=== PATIENT | female | born 1945 | race Caucasian/White ===

== ENCOUNTER → 2021-10-04 | Outpatient (CLI) | payer MEDICARE ==
[2021-10-04 18:34] LABS: HCT 39.7 % (37.2-46.3); HGB 12.9 g/dL (12.0-15.0); MCH 33.6 pg (27.0-32.0); MCHC 32.5 g/dL (32.0-37.0); MCV 103.4 fL (80.0-97.0); Mean Platelet Volume 10.8 fL (9.5-12.2); NRBC Per 100 WBC 0 /100 WBCS (0.0-0.0); Platelet Count 246 X 10*3/uL (140-440); RBC 3.84 X 10*6/uL (4.10-5.20); RDW 12.4 % (11.5-14.5); WBC 8.53 X 10*3/uL (4.50-10.00)
[2021-10-04 18:47] LABS: ALT 15 U/L (8-44); AST 32 U/L (13-35); African American GFR (CKD) 30.7 (60.0-200.0); BUN/Creat Ratio 13.72 Ratio (12.00-20.00); Blood Urea Nitrogen 24.7 mg/dL (9.0-27.0); Calcium 10.6 mg/dL (8.7-10.3); Carbon Dioxide 24.2 mmol/L (20.0-27.5); Chloride 100 mmol/L (96-109); Chol/HDL Ratio 2.71 Ratio; Glucose 96 mg/dL (70-110); LDL Cholesterol,Calculated 92.9 mg/dL (0.0-131.0); Non-African American GFR(CKD) 26.5 (60.0-200.0); Potassium 4.1 mmol/L (3.5-5.5); Sodium 140 mmol/L (135-145)
== END | disposition home or self-care (01) ==
LOC: LABWHC1 11:06
PROVIDERS: ATTEND Internal Medicine Cardiovascular Disease
DX: E78.2 Mixed hyperlipidemia (principal); R60.0 Localized edema
CPT/HCPCS: 36415; 80048; 80061; 83880; 84443; 84450; 84460; 85027

== ENCOUNTER 2023-04-17 06:55 | Emergency (ER) | payer MEDICARE ==
[2023-04-17] MEDS ORDERED: DIPH,PERTUS(ACELL)TETVAC-LF 0.5 ML VIAL IM ONE (07:02)
[2023-04-17] MEDS ORDERED: MORPHINE SULFATE 2 MG/ML SYRINGE IVP ONE (07:05)
--- NOTE | 2023-04-17 07:10 | ED ---
Fall HPI - General Chief Complaint: Fall Stated Complaint: Fall, Finger Injuries Time Seen by Provider: 04/17/23 06:58 Source: patient, EMS, RN notes reviewed Mode of arrival: EMS Limitations: no limitations - History of Present Illness Initial Comments: Patient is a 78-year-old female presenting to the ER via EMS with a chief complaint of a fall. Patient was getting out of her recliner chair this morning and pulling herself up with her walker when she lost her balance and fell landing on her right hand. Patient felt immediate pain and noticed her right hand injury. Patient denies loss of consciousness, blood thinner use, or any other injuries. Patient did not receive any pain medication from EMS. Patient states her pain is very mild currently. Tetanus vaccination status is unknown. - Related Data Previous Rx's Medication Instructions Recorded Cephalexin [Keflex] 500 mg PO Q6HR 10 Days #40 cap 04/17/23 Allergies Allergy/AdvReac Type Severity Reaction Status Date / Time No Known Allergies Allergy Verified 04/17/23 07:00 Review of Systems ROS Statement: Those systems with pertinent positive or pertinent negative responses have been documented in the HPI. ROS Other: All systems not noted in ROS Statement are negative. General Exam General appearance: alert, in no apparent distress Head exam: Present: atraumatic, normocephalic, normal inspection Eye exam: Present: normal appearance, PERRL, EOMI. Absent: scleral icterus, conjunctival injection, periorbital swelling Respiratory exam: Present: normal lung sounds bilaterally. Absent: respiratory distress, wheezes, rales, rhonchi, stridor Cardiovascular Exam: Present: regular rate, normal rhythm, normal heart sounds. Absent: systolic murmur, diastolic murmur, rubs, gallop, clicks GI/Abdominal exam: Present: soft, normal bowel sounds. Absent: distended, t enderness, guarding, rebound, rigid Extremities exam: Present: other (2 cm laceration noted with bone protrusion proximal to fourth digit. Ulnar deviation of fourth digit noted. Ecchymosis noted, 2+ right radial pulse.) Course Vital Signs 04/17/23 07:01 Temperature 98.0 F Pulse Rate 57 L Respiratory 16 Rate Blood Pressure 177/83 O2 Sat by Pulse 97 Oximetry Procedures - Laceration Laceration #1 Consent Obtained: verbal consent Indication: laceration Site: hand Description: linear Depth: simple, single layer Anesthetic Used: lidocaine 1% (with 0.5% bupivicane ) Anesthesia Technique: local infiltration, nerve block Amount (mls): 15 Pre-repair: wound explored, irrigated extensively, deep structures intact Type of Sutures: nylon Size of Sutures: 4-0 Number of Sutures: 3 Technique: simple, interrupted Patient Tolerated Procedure: well, no complications - Orthopedic Fracture Reduction Fracture #1 Consent Obtained: verbal consent Side: right Fracture Reduction Location: finger Analgesia: hematoma block (5th finger), digital block (fourth and fifth digits) Technique: direct manipulation Post-Reduction Neuro Exam: intact Post-Reduction Vascular Exam: intact Splint Applied: Yes (ulnar gutter) Patient Tolerated Procedure: well Medical Decision Making - Medical Decision Making Was pt. sent in by a medical professional or institution (Dr. PA, CUSTOMER SALES CONSULTANT, urgent care, hospital, or correction...) When possible be specific @ -No Did you speak to anyone other than the patient for history (EMS, parent, family, police, friend...)? What history was obtained from this source @ -EMS and family Did you review nursing and triage notes (agree or disagree)? Why? @ -I reviewed and agree with nursing and triage notes Were old charts reviewed (outside hosp., previous admission, EMS record, old EKG, old radiological studies, urgent care reports/EKG's, correction records)? Report findings @ -No old charts were reviewed Differential Diagnosis (chest pain, altered mental status, abdominal pain women, abdominal pain men, vaginal bleeding, weakness, fever, dyspnea, syncope, headache, dizziness, GI bleed, back pain, seizure, CVA, palpatations, mental health, musculoskeletal)? @ -Open fracture, laceration, dislocation EKG interpreted by me (3pts min.). @ -None X-rays interpreted by me (1pt min.). @ -Right hand x-ray significant for displaced fourth and fifth proximal phalanx fractures and osteo-arthritic changes. CT interpreted by me (1pt min.). @ -None done U/S interpreted by me (1pt. min.). @ -None done What testing was considered but not performed or refused? (CT, X-rays, U/S, labs)? Why? @ -None What meds were considered but not given or refused? Why? @ -None Did you discuss the management of the patient with other professionals (professionals i.e. DrPily, PA, CUSTOMER SALES CONSULTANT, lab, RT, psych nurse, social work coordinator, buncher hand, teacher, learning officer, immigration case worker)? Give summary @ -Yes, this case was discussed with Ant Do. He advised intensive irrigation, reduction, and approximation of the open fracture/laceration. He also advised to cover wound with Vaseline and gauze and discharged home with outpatient antibiotic treatment. Advised same-day follow-up with Dr. Rudolph. Was smoking cessation discussed for >3mins.? @ -No Was critical care preformed (if so, how long)? @ -No Were there social determinants of health that impacted care today? How? (Homelessness, low income, unemployed, alcoholism, drug addiction, transportation, low edu. Level, literacy, decrease access to med. care, long term, rehab)? @ -No Was there de-escalation of care discussed even if they declined (Discuss DNR or withdrawal of care, Hospice)? DNR status @ -No What co-morbidities impacted this encounter? (DM, HTN, Smoking, COPD, CAD, Cancer, CVA, ARF, Chemo, Hep., AIDS, mental health diagnosis, sleep apnea, morbid obesity)? @ -None Was patient admitted / discharged? Hospital course, mention meds given and route, prescriptions, significant lab abnormalities, going to OR and other pertinent info. @ -[Discharged. Patient arrived via EMS with open fracture to right fourth phalanx. X-rays of the right hand showed acute mild to moderately displaced fourth and fifth proximal phalanx fractures. Patient received tetanus vaccina tion, 2 g of IV Ancef and 2 g of IV morphine. Patient's fracture was manually reduced with hematoma block and digital blocks, extensively irrigated, and closed with sutures. Patient was placed in a ulnar gutter splint for stabilization to orthopedic office. Patient will be discharged home on Keflex. Patient will follow-up with Dr. Rudolph in office same day as discharge. Patient's son was present at bedside and expressed understanding. Undiagnosed new problem with uncertain prognosis? @ -No Drug Therapy requiring intensive monitoring for toxicity (Heparin, Nitro, Insulin, Cardizem)? @ -No Were any procedures done? @ -Yes Diagnosis/symptom? @ -Right fourth proximal phalanx open fracture, right fifth proximal phalanx fracture Acute, or Chronic, or Acute on Chronic? @ -Acute Uncomplicated (without systemic symptoms) or Complicated (systemic symptoms)? @ -Uncomplicated Side effects of treatment? @ -No Exacerbation, Progression, or Severe Exacerbation? @ -No Poses a threat to life or bodily function? How? (Chest pain, [place], NE, pneumonia, PE, COPD, DKA, ARF, appy, cholecystitis, CVA, Diverticulitis, Homicidal, Suicidal, threat to staff... and all critical care pts) @ -No - Lab Data Result diagrams: 04/17/23 07:11 04/17/23 07:11 Lab Results 04/17/23 04/17/23 Range/Units 07:11 07:11 WBC 8.8 (3.8-10.6) k/uL RBC 3.87 (3.80-5.40) m/uL Hgb 12.8 (11.4-16.0) gm/dL Hct 37.6 (34.0-46.0) % MCV 97.2 (80.0-100.0) fL MCH 32.9 (25.0-35.0) pg MCHC 33.9 (31.0-37.0) g/dL RDW 14.2 (11.5-15.5) % Plt Count 282 (150-450) k/uL MPV 7.5 Sodium 140 (137-145) mmol/L Potassium 4.4 (3.5-5.1) mmol/L Chloride 108 H (98-107) mmol/L Carbon Dioxide 23 (22-30) mmol/L Anion Gap 9 mmol/L BUN 36 H (7-17) mg/dL Creatinine 1.41 H (0.52-1.04) mg/dL Est GFR (CKD-EPI)AfAm 41 (>60 ml/min/1.73 sqM) Est GFR (CKD-EPI)NonAf 35 (>60 ml/min/1.73 sqM) Glucose 92 (74-99) mg/dL Calcium 10.0 (8.4-10.2) mg/dL Total Bilirubin 0.5 (0.2-1.3) mg/dL AST 27 (14-36) U/L ALT 16 (4-34) U/L Alkaline Phosphatase 109 (38-126) U/L Total Protein 6.5 (6.3-8.2) g/dL Albumin 3.5 (3.5-5.0) g/dL - Radiology Data Radiology results: report reviewed, image reviewed Disposition Clinical Impression: Open finger fracture Disposition: HOME SELF-CARE Condition: Stable Additional Instructions: Please return to the Emergency Department if symptoms worsen or any other concerns. Follow up with Dr. Rudolph for further evaluation. Prescriptions: Cephalexin [Keflex] 500 mg PO Q6HR 10 Days #40 cap Is patient prescribed a controlled substance at d/c from ED?: No Referrals: Barber Murphy MD [STAFF PHYSICIAN] - 1-2 days Andrew Rudolph DO [Doctor of Osteopathic Medicine] - 1-2 days Time of Disposition: 09:40
[2023-04-17 07:19] VITALS: PULSE 57
[2023-04-17 07:19] LABS: HCT 37.6 % (34.0-46.0); HGB 12.8 gm/dL (11.4-16.0); MCH 32.9 pg (25.0-35.0); MCHC 33.9 g/dL (31.0-37.0); MCV 97.2 fL (80.0-100.0); Mean Platelet Volume 7.5; Platelet Count 282 k/uL (150-450); RBC 3.87 m/uL (3.80-5.40); RDW 14.2 % (11.5-15.5); WBC 8.8 k/uL (3.8-10.6)
--- NOTE | 2023-04-17 07:29 | XR ---
EXAMINATION TYPE: XR hand complete RT DATE OF EXAM: 04/17/2023 7:22 AM INDICATION: Patient age:Female; 78 years old; Reason for study: pain; PHH. COMPARISON: None TECHNIQUE: Frontal, lateral and oblique views of the right hand were obtained. FINDINGS: Diffuse bone demineralization. Acute mild to moderately displaced comminuted fractures of t he proximal shafts of the fourth and fifth proximal phalanges. Pulmonary apex angulation demonstrated . There is surrounding soft tissue swelling. No dislocation. Osteoarthritic changes identified most p rominently involving the first through fifth DIP and PIP joints. Additional degenerative changes of t he radiocarpal and distal radius ulnar joints. IMPRESSION: 1. Acute mild to moderately displaced fourth and fifth proximal phalanx fractures. 2. Moderate osteoarthritic changes.
[2023-04-17 07:34] LABS: ALT 16 U/L (4-34); AST 27 U/L (14-36); African American GFR (CKD) 41 (>60 ml/min/1.73 sqM); Albumin 3.5 g/dL (3.5-5.0); Alkaline Phosphatase 109 U/L (38-126); Anion Gap 9 mmol/L; Blood Urea Nitrogen 36 mg/dL (7-17); Carbon Dioxide 23 mmol/L (22-30); Chloride 108 mmol/L (98-107); Glucose 92 mg/dL (74-99); Non-African American GFR(CKD) 35 (>60 ml/min/1.73 sqM); Potassium 4.4 mmol/L (3.5-5.1); Sodium 140 mmol/L (137-145); Total Bilirubin 0.5 mg/dL (0.2-1.3); Total Protein 6.5 g/dL (6.3-8.2)
[2023-04-17] MEDS ORDERED: LIDOCAINE 1% INJ 10MG/ML (20 ML MDV) SQ ONE (07:36)
[2023-04-17] MEDS ORDERED: BUPIVACAINE (PF) 0.5% 30 ML VIAL SQ ONE (07:36)
[2023-04-17] MEDS ORDERED: BACITRACIN OINT 1 EACH PACKET TOPICAL ONE (08:04)
[2023-04-17 09:47] VITALS: BP 180/84; RESP 19; TEMP 97.5
== END 2023-04-17 09:29 | disposition home or self-care (01) ==
LOC: EC 06:55
DX: S62.606B Fracture of unspecified phalanx of right little finger, initial encounter for open fracture (principal); W18.30XA Fall on same level, unspecified, initial encounter
CPT/HCPCS: 36415; 80053; 85027; 73130; 90715; 99284; 96365; 96375; 96372; 90471; 26725; J0690; J2001; J2270; J0665

== ENCOUNTER 2023-12-22 19:03 | Emergency (ER) | payer MEDICARE ==
[2023-12-22 19:16] VITALS: RESP 18
--- NOTE | 2023-12-22 19:34 | ED ---
Extremity Problem HPI - General Chief complaint: Extremity Injury, Upper Stated complaint: RT Shoulder Injury Time Seen by Provider: 12/22/23 19:06 Source: patient, family, RN notes reviewed Mode of arrival: EMS Limitations: physical limitation - History of Present Illness Initial comments: This is an 78-year-old female who presents to the emergency department for right shoulder pain. She lives at [facility] and has been complaining of pain over the right shoulder since yesterday. They are unsure if she fell or may have injured it in someway. Her son states that she may have also slept on it wrong. Unsure if she has been given anything for pain. She is having difficulty lifting her arm because of the pain. She has dementia and is a poor historian and is unable to give much history herself. MD Complaint: extremity pain - Related Data Previous Rx's Medication Instructions Recorded Cephalexin [Keflex] 500 mg PO Q6HR 10 Days #40 cap 04/17/23 Allergies Allergy/AdvReac Type Severity Reaction Status Date / Time No Known Allergies Allergy Verified 04/17/23 07:00 Review of Systems ROS Statement: Those systems with pertinent positive or pertinent negative responses have been documented in the HPI. ROS Other: All systems not noted in ROS Statement are negative. Past Medical History Past Medical History: Dementia, Osteoarthritis (OA) History of Any Multi-Drug Resistant Organisms: None Reported Past Surgical History: No Surgical Hx Reported Past Psychological History: Anxiety, Depression Smoking Status: Never smoker Past Alcohol Use History: None Reported Past Drug Use History: None Reported General Exam Limitations: physical limitation General appearance: alert, in no apparent distress Head exam: Present: atraumatic, normocephalic, normal inspection Respiratory exam: Present: normal lung sounds bilaterally. Absent: respiratory distress, wheezes, rales, rhonchi, stridor Cardiovascular Exam: Present: regular rate, normal rhythm, normal heart sounds. Absent: systolic murmur, diastolic murmur, rubs, gallop, clicks Extremities exam: Present: other (Tenderness to palpation over the right shoulder. No obvious swelling or deformities. Range of motion limited by pain. 2+ radial pulses.) Neurological exam: Present: alert Psychiatric exam: Present: normal affect, normal mood Skin exam: Present: warm, dry, intact, normal color. Absent: rash Course Vital Signs 12/22/23 12/22/23 19:05 21:16 Temperature 99.4 F 99.2 F Pulse Rate 82 81 Respiratory 18 18 Rate Blood Pressure 146/74 138/76 O2 Sat by Pulse 95 95 Oximetry Medical Decision Making - Medical Decision Making This is an 78 year old female who presents to the emergency department for right shoulder pain. Was pt. sent in by a medical professional or institution? @ -No Did you speak to anyone other than the patient for history? @ -Her son provided almost all of the history. Did you review nursing and triage notes? @ -Yes, and I agree, it is accurate with regards to the patient's symptoms. Were old charts reviewed? @ -No Differential Diagnosis? @ -Differential Musculoskeletal: Muscular strain, contusion, ligament sprain, fracture, arthritis, septic arthritis, bursitis, cellulitis, muscle spasm, nerve compression, DVT, arterial occlusion, herpes zoster, electrolyte abnormality, tumor.... This is not meant to be in all inclusive list EKG interpreted by me (3pts min.)? @ -EKG interpreted by me demonstrating the following: Supraventricular rhythm. Ventricular rate 77 bpm, QRS duration 118 ms, QTc 427 ms. X-rays interpreted by me (1pt min.)? @ -X-ray of the right shoulder obtained. My interpretation identifies no acute fractures. CT interpreted by me (1pt min.)? @ -Not obtained U/S interpreted by me (1pt. min.)? @ -Not obtained What testing was considered but not performed? (CT, X-rays, U/S, labs)? Why? @ -None What meds were considered but not given? Why? @ -None Did you discuss the management of the patient with other professionals? @ -No Did you reconcile home meds? @ -No Was smoking cessation discussed for >3mins.? @ -No Was critical care preformed (if so, how long)? @ -No Were there social determinants of health that impacted care today? How? (Homelessness, low income, unemployed, alcoholism, drug addiction, transportation, low edu. Level, literacy, decrease access to med. care, penitentiary, rehab)? @ -No Was there de-escalation of care discussed even if they declined? (Discuss DNR or withdrawal of care, Hospice)? @ -No What co-morbidities impacted this encounter? (DM, HTN, Smoking, COPD, CAD, Cancer, CVA, Hep., AIDS, mental health diagnosis, sleep apnea, morbid obesity)? @ -Dementia, osteoarthritis Was patient admitted / discharged? @ -Discharged. X-ray of the right shoulder obtained demonstrating rotator cuff arthropathy without any other acute process. Patient given Toradol and Tylenol in the emergency department. Advised to continue with Tylenol as needed for pain relief. Patient sent home with diclofenac gel and lidocaine patches. Advised continuing with these outpatient as needed. Information for orthopedic follow-up provided. Patient discharged back to [facility] in stable condition. Undiagnosed new problem with uncertain prognosis? @ -None Drug Therapy requiring intensive monitoring for toxicity (Heparin, Nitro, Insulin, Cardizem)? @ -None Were any procedures done? @ -None Diagnosis/symptom? @ -Right shoulder pain Acute, or Chronic, or Acute on Chronic? @ -Acute Uncomplicated (without systemic symptoms) or Complicated (systemic symptoms)? @ -Uncomplicated Side effects of treatment? @ -None Exacerbation, Progression, or Severe Exacerbation] @ -Not applicable Poses a threat to life or bodily function? @ -No Return precautions reviewed in depth, the patient is instructed to return to the emergency department with any new, worsening, or concerning symptoms. Patient and her son verbalized understanding. This case was discussed in detail with the attending ED physician, Dr. Vargas. Presentation, findings, and treatment plan discussed in detail as well. - Radiology Data Radiology results: report reviewed, image reviewed Disposition Clinical Impression: Rotator cuff arthropathy of right shoulder Disposition: HOME SELF-CARE Instructions (If sedation given, give patient instructions): Shoulder Pain (ED) Additional Instructions: Return to the emergency department with any new, worsening, or concerning symptoms. She can continue to have Tylenol as needed for pain relief. The diclofenac gel can be applied up to 4 times daily over the joints to help with discomfort. She can also apply lidocaine patches. Contact orthopedics as listed below for follow-up appointment regarding the ongoing right shoulder pain. Follow up with her primary care provider in 1-2 days. Is patient prescribed a controlled substance at d/c from ED?: No Referrals: None,Stated [Primary Care Provider] - 1-2 days Asad Villegas DO [Doctor of Osteopathic Medicine] - 1-2 days Rolando Shah MD [STAFF PHYSICIAN] - 1-2 days Time of Disposition: 20:17
[2023-12-22] MEDS: ACETAMINOPHEN TAB 325 MG TAB PO STA (19:42)
[2023-12-22] MEDS: KETOROLAC 15 MG/ML 1 ML VIAL IM STA (19:43)
--- NOTE | 2023-12-22 20:01 | XR ---
EXAMINATION TYPE: XR shoulder complete 3 views RT DATE OF EXAM: 12/22/2023 Comparison: None Clinical History: 78-year-old female Pain Findings: Moderate degenerative change at the AC joint. There is inferior acromial spurring and loss of the sub acromial space rounded contour of the greater tuberosity. At least mild degenerative change of the gl enohumeral joint. Partially visualized knee leads. No acute fracture or dislocation. Impression: 1. Rotator cuff arthropathy. Consider outpatient orthopedic referral. 2. At least moderate AC joint OA.
[2023-12-22] MEDS: LIDOCAINE 4% PATCH TOPICAL ONE (21:03)
[2023-12-22] MEDS: DICLOFENAC SODIUM GEL 50 GM TUBE TOPICAL STA (21:03)
[2023-12-22 21:17] VITALS: BP 138/76; PULSE 81; TEMP 99.2
== END 2023-12-22 21:16 | disposition home or self-care (01) ==
LOC: EC 19:03
DX: M19.011 Primary osteoarthritis, right shoulder (principal); F03.90 Unspecified dementia, unspecified severity, without behavioral disturbance, psychotic disturbance, mood disturbance, and anxiety
CPT/HCPCS: 93005; 73030; 99284; 96372; J1885